=== PATIENT | male | born 1965 | race Hispanic/Latino ===

== ENCOUNTER 2021-06-18 13:20 | Inpatient (IN) | payer SELFPAY ==
[2021-06-18] MEDS ORDERED: BUPIVACAINE 0.5% PF 10 ML VIAL ONE (14:32)
[2021-06-18] MEDS ORDERED: LIDOCAINE 1% MPF 5 ML VIAL ONE (14:32)
--- NOTE | 2021-06-18 15:24 | RAD REPORT ---
EXAM DESCRIPTION: RAD - Hand Left 3 View - 06/18/2021 3:05 pm CLINICAL HISTORY: PAIN, Alondra bleeding injury to the second and third digits COMPARISON: None. FINDINGS: There is transverse fracture in the midportion of the third distal phalanx with bone loss in addition to the fracture. No significant distraction or angulation of the tuft. No foreign body id entifiable in the third digit. Comminuted fracture involves the head of the second middle phalanx and base of the second distal phal anx. There is ventral dislocation of the second distal phalanx. There is some associated traumatic majo ne loss through this fracture as well. No second digit foreign body. IMPRESSION: Posttraumatic bone loss in fracture changes to the third distal phalanx and the second D IP joint as detailed.
[2021-06-18 16:26] LABS: Absolute Lymphocytes (CBC) 2.8 K/uL (0.7-4.9); Basophils % 0.5 % (0-1.3); Lymphocytes % 43.9 % (15.3-44.8); MPV 8.1 fL (7.6-11.3); RBC Red Blood Cell Count 4.04 M/uL (4.33-5.43)
[2021-06-18] MEDS ORDERED: NA CHLORIDE 0.9% 1,000 ML ONE (16:33)
[2021-06-18] MEDS ORDERED: CEFAZOLIN/SWI 1gm 1 GM/10 ML SYR ONE (16:33)
[2021-06-18 16:34] LABS: Potassium 4.1 mmol/L (3.5-5.1)
[2021-06-18] MEDS ORDERED: ONDANSETRON 4 MG/2 ML VIAL ONE (16:46)
[2021-06-18] MEDS ORDERED: MORPHINE 4 MG/ML SYR ONE (16:46)
--- NOTE | 2021-06-18 16:46 | EDPHYS ---
Physician Documentation [facility] Name: Constantino Cole Age: 55 yrs Sex: Male : 1965 Arrival Date: 06/18/2021 Time: 13:22 Bed 16 Private MD: ED Physician Adonay Jack HPI: 06/18 16:37 This 55 yrs old Male presents to ER via Ambulatory with complaints of kb Laceration To Hand. 16:37 The patient has a laceration related to: cutting tree with saw occurred outdoors, and kb there are no complicating factors. The injury was accidental. The laceration(s) is(are) located on the dorsal aspect of distal phalanx of left middle finger and palmar aspect of distal phalanx of left index finger and dorsal aspect of distal phalanx of left index finger. Onset: The symptoms/episode began/occurred just prior to arrival. Associated signs and symptoms: The patient has no apparent associated signs or symptoms. The patient has not experienced similar symptoms in the past. The patient has not recently seen a physician. Patient was cutting tree with a saw when the saw cuts. Patient thought this was turned off as he tried to get it out of the tree. Once he got the cell free the blade started spinning again and cut patient's fingers.. Historical: - Allergies: 14:01 No Known Allergies; ss - Home Meds: 14:01 None [Active]; ss - PMHx: 14: None; ss - PSHx: 14:01 None; ss - Immunization history:: Adult Immunizations up to date. - Social history:: Smoking status: Patient denies any tobacco usage or history of. ROS: 16:33 Constitutional: Negative for fever, chills, and weight loss. kb 16:33 MS/extremity: Positive for injury or acute deformity, deformity, laceration, swelling, tenderness, of the left middle finger and left index finger. 16:33 Skin: Positive for laceration(s), of the left middle finger and left index finger. 16:33 All other systems are negative. Exam: 16:30 Constitutional: This is a well developed, well nourished patient who is awake, alert, kb and in no acute distress. Head/Face: Normocephalic, atraumatic. ENT: Moist Mucous membranes Cardiovascular: Regular rate and rhythm with a normal S1 and S2. No gallops, murmurs, or rubs. No pulse deficits. Respiratory: Respirations even and unlabored. No increased work of breathing, no retractions or nasal flaring. Abdomen/GI: Soft, non-tender. No distention Neuro: Awake and alert, GCS 15, oriented to person, place, time, and situation. Moves all extremities. Normal gait. Psych: Awake, alert, with orientation to person, place and time. Behavior, mood, and affect are within normal limits. 16:30 Skin: injury, laceration(s), the wound is approximately 3 cm(s), of the dorsal aspect of distal phalanx of left index finger, the second wound is approximately 1 cm(s), of the palmar aspect of distal phalanx of left index finger, the third wound is approximately 2 cm(s), of the dorsal aspect of distal phalanx of left middle finger, that can be described as contaminated, no foreign body, jagged, with mild bleeding. 16:31 Musculoskeletal/extremity: Extremities: grossly normal except: noted in the left index kb finger and left middle finger: deformity, laceration, swelling, tenderness, ROM: intact in all extremities, Circulation is intact in all extremities. Sensation intact. Vital Signs: 14:01 BP 185 / 94; Pulse 91; Resp 20; Temp 98.0(TE); Pulse Ox 97% ; Weight 76.2 kg; Height 5 ss ft. 4 in. (165 cm); Pain 4/10; 16:35 BP 153 / 81; Pulse 69; Resp 18; Pulse Ox 98% on R/A; tr6 14:01 Body Mass Index 27.99 (76.20 kg, 165 cm) ss MDM: 14:05 Patient medically screened. kb 14:55 Data reviewed: vital signs, nurses notes. Data interpreted: Pulse oximetry: on room air kb is 97 %. Interpretation: normal. Test interpretation: by ED physician or midlevel provider: plain radiologic studies, fracture of second and third distal phalanx, fracture of second middle phalanx. . 15:01 Physician consultation: Harley Camacho MD was called at 15:01, voicemail left. kb 15:52 Physician consultation: Harley Camacho MD was contacted at 15:20, regarding consult, kb patient's condition, and will see patient in inpatient room, tomorrow. 16:29 Counseling: I had a detailed discussion with the patient and/or guardian regarding: the kb historical points, exam findings, and any diagnostic results supporting the discharge/admit diagnosis, lab results, radiology results, the need for further work-up and treatment in the hospital. Physician consultation: TRINIDAD Lozada consulted for admission. In ED to evaluate pt now. 06/18 15:29 Order name: COVID-19 : Document "Date of Symptom Onset" if Symptomatic. ss 06/18 15:52 Order name: CBC with Diff; Complete Time: 16:29 kb 06/18 14:04 Order name: Hand Left 3 View XRAY; Complete Time: 15:53 kb 06/18 15:52 Order name: Basic Metabolic Panel; Complete Time: 16:38 kb 06/18 17:58 Order name: SARS-COV-2 RT PCR EDMS 06/18 14:04 Order name: Dressing - Wound; Complete Time: 14:13 kb 06/18 16:36 Order name: Diet Regular; Complete Time: 16:36 tr6 06/18 14:04 Order name: Gloves, Sterile; Complete Time: 14:13 kb 06/18 14:04 Order name: Setup Suture Tray; Complete Time: 14:13 kb 06/18 15:52 Order name: IV Start; Complete Time: 16:06 kb 06/18 15:52 Order name: Wound Care: apply betadine gauze ; Complete Time: 16:18 kb Administered Medications: 16:08 Not Given (Other Intervention Used): Bupivacaine (0.5 %) 1 vials 10 ml Infiltration oncetr6 16:08 Not Given (Other Intervention Used): Lidocaine (1 %) 1 vials 5 ml Infiltration once; to tr6 bedside 16:18 Drug: NS 0.9% 1000 ml Route: IV; Rate: 125 ml/hr; Site: right antecubital; tr6 16:18 Drug: Ancef (cefazolin) 1 grams Route: IVPB; Site: right antecubital; tr6 16:32 Drug: morphine 4 mg Route: IVP; Site: right antecubital; tr6 17:01 Follow up: Response: Pain is decreased tr6 16:32 Drug: Zofran (Ondansetron) 4 mg Route: IVP; Site: right antecubital; tr6 17:01 Follow up: Response: No adverse reaction tr6 Disposition: 06/19 07:49 Co-signature as Attending Physician, Adonay Jack MD I agree with the assessment and kdr plan of care. Disposition Summary: 06/18/21 16:45 Hospitalization Ordered Hospitalization Status: Observation kb Provider: Papo Barrett Location: Telemetry/MedSurg (observation) kb Condition: Stable kb Problem: new kb Symptoms: are unchanged kb Bed/Room Type: Standard Room Assignment: 224(06/18/21 19:12) tl1 Diagnosis - Displaced fracture of distal phalanx of left second digit kb - Displaced fracture of distal phalanx of left third digit kb - Displaced fracture of middle phalanx of left second digit kb - laceration without foreign body of left second and third digits kb Forms: - Medication Reconciliation Form kb - SBAR form kb Signatures: Dispatcher [employer] EDMS Jaz Peralta, SHIPPING ROOM HELPER-C SHIPPING ROOM HELPER-Ckb Adonay Jack MD MD [facility] Melissa Wolfe RN RN Yun Eisenberg, RN RN tl1 Qiana Goldman, KRIS RN tr6 Corrections: (The following items were deleted from the chart) 06/18 16:07 14:04 Sutures, Prolene ordered. kb tr6 16:18 15:52 CORONAVIRUS+MR.LAB.BRZ ordered. EDMS EDMS 19:12 16:45 kb tl1
--- NOTE | 2021-06-18 16:46 | ER ---
Nurse's Notes [facility] Name: Constantino Cole Age: 55 yrs Sex: Male : 1965 Arrival Date: 06/18/2021 Time: 13:22 Bed 16 Private MD: Diagnosis: Displaced fracture of distal phalanx of left second digit;Displaced fracture of distal phalanx of left third digit;Displaced fracture of middle phalanx of left second digit;laceration without foreign body of left second and third digits Presentation: 06/18 14:00 Chief complaint: Patient states: laceration to top of L fingers sustained by saw 30 ss minutes ago while cutting a tree. No active bleeding noted at this time.. Coronavirus screen: Client denies travel out of the [place] in the last 14 days. Ebola Screen: Patient denies exposure to infectious person. Patient denies travel to an Ebola-affected area in the 21 days before illness onset. Complicating Factors: There are no complicating factors for this patient. Initial Sepsis Screen: Does the patient meet any 2 criteria? No. Patient's initial sepsis screen is negative. Does the patient have a suspected source of infection? No. Patient's initial sepsis screen is negative. Risk Assessment: Do you want to hurt yourself or someone else? Patient reports no desire to harm self or others. Onset of symptoms was June 18, 2021. 14:00 Method Of Arrival: Ambulatory ss 14:00 Acuity: SANDRA 3 ss Historical: - Allergies: 14:01 No Known Allergies; ss - Home Meds: 14:01 None [Active]; ss - PMHx: 14:01 None; ss - PSHx: 14:01 None; ss - Immunization history:: Adult Immunizations up to date. - Social history:: Smoking status: Patient denies any tobacco usage or history of. Screenin:18 Abuse screen: Denies threats or abuse. Denies injuries from another. Nutritional tr6 screening: No deficits noted. Tuberculosis screening: No symptoms or risk factors identified. Fall Risk None identified. Assessment: 14:16 General: Appears in no apparent distress. comfortable, Behavior is calm, cooperative, tr6 appropriate for age. Pain: Complains of pain in left hand. Neuro: No deficits noted. Cardiovascular: No deficits noted. Respiratory: No deficits noted. GI: No deficits noted. : No deficits noted. EENT: No deficits noted. Derm: Wound noted left hand, first and second finger. Musculoskeletal: limited movement in first and second finger due to pain from laceration. Injury Description: Laceration is jagged, bleeding moderately. 15:00 Reassessment: GIULIANA Peralta informed pt of results from xray. pt resting comfortably in tr6 bed. denies need for assistance at this time. 16:35 Reassessment: Patient and/or family updated on plan of care and expected duration. Pain tr6 level reassessed. Patient is alert, oriented x 3, equal unlabored respirations, skin warm/dry/pink. Vital Signs: 14:01 BP 185 / 94; Pulse 91; Resp 20; Temp 98.0(TE); Pulse Ox 97% ; Weight 76.2 kg; Height 5 ss ft. 4 in. (165 cm); Pain 4/10; 16:35 BP 153 / 81; Pulse 69; Resp 18; Pulse Ox 98% on R/A; tr6 14:01 Body Mass Index 27.99 (76.20 kg, 165 cm) ED Course: 13:22 Patient arrived in ED. as 13:50 Jaz Peralta, [facility] kb 13:50 Adonay Jack MD is Attending Physician. kb 14:01 Triage completed. ss 14:01 Arm band placed on right wrist. ss 14:03 Qiana Goldman, KRIS is Primary Nurse. tr6 14:18 Patient has correct armband on for positive identification. Bed in low position. Call tr6 light in reach. Side rails up X 1. Door closed. Noise minimized. Visitors limited. Lights dimmed. Moved to private room. 14:18 No provider procedures requiring assistance completed. Wound care: was cleaned with. tr6 15:05 Hand Left 3 View XRAY In Process Unspecified. EDMS 16:06 Inserted saline lock: 18 gauge in right antecubital area, using aseptic technique. tr6 Blood collected. 16:42 Papo Barrett is Hospitalizing Provider. kb Administered Medications: 16:08 Not Given (Other Intervention Used): Bupivacaine (0.5 %) 1 vials 10 ml Infiltration oncetr6 16:08 Not Given (Other Intervention Used): Lidocaine (1 %) 1 vials 5 ml Infiltration once; to tr6 bedside 16:18 Drug: NS 0.9% 1000 ml Route: IV; Rate: 125 ml/hr; Site: right antecubital; tr6 16:18 Drug: Ancef (cefazolin) 1 grams Route: IVPB; Site: right antecubital; tr6 16:32 Drug: morphine 4 mg Route: IVP; Site: right antecubital; tr6 17:01 Follow up: Response: Pain is decreased tr6 16:32 Drug: Zofran (Ondansetron) 4 mg Route: IVP; Site: right antecubital; tr6 17:01 Follow up: Response: No adverse reaction tr6 Outcome: 16:45 Decision to Hospitalize by Provider. kb 19:31 Patient left the ED. ms4 Signatures: Dispatcher [employer] EDJaz Briones, RN ELIGIBILITY-C GIULIANA-Tabitha Johnson Shelby, RN RN Qiana Goldman RN RN tr6 Sneha Vegas RN RN ms4
--- NOTE | 2021-06-18 17:44 | P.HP ---
Certification for Inpatient Patient admitted to: Observation With expected LOS: <2 Midnights Patient will require the following post-hospital care: None Practitioner: I am a practitioner with admitting privileges, knowledge of patient current condition, hospital course, and medical plan of care. Services: Services provided to patient in accordance with Admission requirements found in Title 42 Section 412.3 of the Code of Federal Regulations Patient History Date of Service: 06/18/21 Reason for admission: fracture of 2nd and 3rd digit History of Present Illness: This is a 55 y/o M who presents today after an accidental laceration to his hand. He cut his hand with a saw while he was working. He thought the saw was off and then sliced his second and third digit. States this is the first accident he has ever had. - Past Medical/Surgical History Psychosocial/ Personal History: lives with his - Social History Smoking Status: Never smoker Alcohol use: Yes CD- Drugs: No Caffeine use: Yes Review of Systems 10-point ROS is otherwise unremarkable Physical Examination - Physical Exam General: Alert, In no apparent distress, Oriented x3, Cooperative, Other (splattered blood on clothes ) HEENT: Atraumatic, Normocephalic, Mucous membr. moist/pink Neck: Supple Respiratory: Clear to auscultation bilaterally, Normal air movement Cardiovascular: Normal pulses, Regular rate/rhythm Capillary refill: <2 Seconds Gastrointestinal: Normal bowel sounds, Soft and benign, No tenderness Musculoskeletal: Other (clean bandage wrapped around L hand) Integumentary: No rashes Neurological: Normal speech, Normal tone, Normal affect Lymphatics: No axilla or inguinal lymphadenopathy - Studies Laboratory Data (last 24 hrs) 06/18/21 16:02: Sodium 142, Potassium 4.1, BUN 20 H, Creatinine 1.23, Glucose 97 06/18/21 16:02: WBC 6.50, Hgb 13.1 L, Hct 38.0 L, Plt Count 240 Assessment and Plan - Problems (Diagnosis) (1) Fracture of distal phalanx of finger of left hand Current Visit: Yes Status: Acute (2) Fracture of middle phalanx of finger of left hand Current Visit: Yes Status: Acute - Plan plan: -OR tomorrow morning with Dr. Camacho -NPO after midnight -continue IV antibiotics VTE prophylaxis: SCDs code: full Discharge Plan: Home Plan to discharge in: 24 Hours - Advance Directives Does patient have a Living Will: No Does patient have a Durable POA for Healthcare: No - Code Status/Comfort Care Code Status Assessed: Yes (f) Time Spent Managing Pts Care (In Minutes): 55
[2021-06-18] MEDS ORDERED: CEFAZOLIN/SWI 1gm 1 GM/10 ML SYR IVP SCH (19:00)
[2021-06-18] MEDS ORDERED: MORPHINE 4 MG/ML SYR IV PRN (22:52)
[2021-06-18 23:19] VITALS: BMI 28.8
[2021-06-19] MEDS ORDERED: CEFAZOLIN/SWI 1gm 1 GM/10 ML SYR ONE ×2 (00:41→08:22)
[2021-06-19] MEDS ORDERED: CEFAZOLIN/SWI 1gm 1 GM/10 ML SYR IVP SCH ×2 (01:00)
[2021-06-19] MEDS ORDERED: CEFAZOLIN/NS 1gm 1 GM/50 ML BAG IVPB SCH ×2 (01:00)
[2021-06-19 05:30] LABS: Absolute Lymphocytes (CBC) 2.5 K/uL (0.7-4.9); Basophils % 0.6 % (0-1.3); Hematocrit 37.1 % (39.6-49.0); Lymphocytes % 45.4 % (15.3-44.8); MPV 7.8 fL (7.6-11.3); RBC Red Blood Cell Count 3.93 M/uL (4.33-5.43)
[2021-06-19 05:47] LABS: Albumin 3.2 g/dL (3.4-5.0); Bilirubin Total 0.4 mg/dL (0.2-1.0); Potassium 4.1 mmol/L (3.5-5.1); Protein, Total 6.6 g/dL (6.4-8.2)
[2021-06-19 06:47] LABS: Blood Morphology Comment NOT SEEN (NOT SEEN); Platelet Estimate ADEQ
[2021-06-19] MEDS ORDERED: NS 0.9% VIAL 10 ML ONE (08:18)
[2021-06-19] MEDS ORDERED: dexAMETHasone 10 MG/ML VIAL ONE (08:18)
[2021-06-19] MEDS ORDERED: LIDOCAINE 1% MPF 5 ML VIAL ONE ×2 (08:18→08:54)
[2021-06-19] MEDS ORDERED: ROPLVACAINE HCL 40 ML ONE (08:19)
[2021-06-19] MEDS ORDERED: Ringers Lactate 1,000 ML IV ONE (08:19)
[2021-06-19] MEDS ORDERED: MIDAZOLAM HCL 2 MG/2 ML INJ ONE (08:19)
[2021-06-19] MEDS ORDERED: FENTANYL CITR 100 MCG/2 ML ONE (08:19)
[2021-06-19] MEDS ORDERED: KETOROLAC 30 MG/ML INJ ONE (08:53)
[2021-06-19] MEDS ORDERED: propofoL 200 MG/20 ML VIAL IV ONE ×2 (08:53→10:04)
[2021-06-19] MEDS ORDERED: ONDANSETRON 4 MG/2 ML VIAL ONE (08:54)
[2021-06-19] MEDS ORDERED: dexAMETHasone 4 MG/ML VIAL ONE (08:54)
--- NOTE | 2021-06-19 11:14 | RAD REPORT ---
EXAM DESCRIPTION: RAD - Fluoroscopy <1 Hour - 06/19/2021 10:49 am CLINICAL HISTORY: PINNING LEFT FINGERS COMPARISON: No comparisons FINDINGS: Fluoroscopy time: 0.2 minutes.
--- NOTE | 2021-06-19 11:31 | P.DS ---
Admission Date: 06/18/21 Discharge Date: 06/19/21 Disposition: ROUTINE DISCHARGE Discharge Condition: FAIR Reason for Admission: fracture of 2nd and 3rd digit - Problems (1) Fracture of distal phalanx of finger of left hand Current Visit: Yes Status: Acute (2) Fracture of middle phalanx of finger of left hand Current Visit: Yes Status: Acute Brief History of Present Illness: 55 y/o M who presents with an accidental laceration to his hand. He cut his hand with a saw while he was working. He thought the saw was off and then sliced his second and third digit. X-ray of the left hand showed comminuted fractures of the 2nd and 3rd digits. Hand surgery Dr. Camacho was contacted and patient admitted for further management. Hospital Course: Patient admitted to the medical floor, seen by Dr. Camacho we took him to OR and repaired the fractures. Patient deemed stable for discharge per Dr. Camacho. Vital Signs/Physical Exam: Temp Pulse Resp BP Pulse Ox 97.1 F 60 16 145/84 H 98 06/19/21 04:00 06/19/21 04:00 06/19/21 04:00 06/19/21 04:00 06/19/21 04:00 Laboratory Data at Discharge: WBC 5.50 K/uL (4.3-10.9) D 06/19/21 05:10 Hgb 12.7 g/dL (13.6-17.9) L 06/19/21 05:10 Hct 37.1 % (39.6-49.0) L 06/19/21 05:10 Plt Count 211 K/uL (152-406) 06/19/21 05:10 Sodium 142 mmol/L (136-145) 06/19/21 05:10 Potassium 4.1 mmol/L (3.5-5.1) 06/19/21 05:10 BUN 18 mg/dL (7-18) 06/19/21 05:10 Creatinine 1.43 mg/dL (0.55-1.3) H 06/19/21 05:10 Glucose 96 mg/dL (74-106) 06/19/21 05:10 Total Bilirubin 0.4 mg/dL (0.2-1.0) 06/19/21 05:10 AST 26 U/L (15-37) 06/19/21 05:10 ALT 60 U/L (12-78) 06/19/21 05:10 Alkaline Phosphatase 62 U/L (45-117) 06/19/21 05:10 Diet: Regular Activity: Ad karen Followup: NONE,NONE [Primary Care Provider] - Time spent managing pt's care (in minutes): 25
--- NOTE | 2021-06-19 12:28 | OP ---
Surgeon: Harley Camacho MD Preoperative Diagnosis: Open fracture of the left index finger distal phalanx and left middle finger distal phalanx. Postoperative Diagnosis: Open fracture of the left index finger distal phalanx and left middle finge r distal phalanx. Procedure Performed: Debridement of skin and subcutaneous of the left index finger DIP ortega nt. Nail bed repair of the index and middle finger, simple closure of 8 cm wound and splint of index and middle. Anesthesia: General block. Operative Note: After satisfactory anesthetic was induced, the left arm was prepped with Betadine sc rub, Betadine paint, dry sterile drapes were applied in usual manner. Arm was elevated, exsanguinate d with an Esmarch, tourniquet inflated to 250 mmHg. Hand was placed on a Roto Lock table. A periost eal elevator was used to remove the nail plates from both fingers and then the wounds were jet lavage d and irrigated after the skin was debrided. The patient's fracture of the distal phalanx had tissue missing, could not be repaired, so we underwent a fusion of the DIP joint. This was done with two 0 .035 K-wires. C-arm revealed adequate reduction of the joint. Then the wounds were closed with a ru nning 5-0 PDS suture. Skin closed with interrupted 4-0 Prolene simple sutures, vertical mattress and horizontal mattress was done on both fingers. Tourniquet released. Dressing consisted of Xeroform, 2-inch Lilliam, and a splint holding the DIP in extension of both fingers. The patient tolerated the procedure well and returned to recovery. KARINA/MODL Voice ID: [id number] Report ID: [id number]
[2021-06-19 14:13] VITALS: O2SAT 99
[2021-06-19 14:15] VITALS: BP 160/77; TEMP 97.3
== END 2021-06-19 12:20 | disposition home or self-care (01) | DRG 514 ==
LOC: ER 13:20 → ERHOLD 17:06 → 2ND 19:26 → OBSVTOIN 20:45 → 3RD-ICU 06-19 10:31
PROVIDERS: ADMIT Internal Medicine; ATTEND Internal Medicine
PROC: 0PSV04Z Reposition Left Finger Phalanx with Internal Fixation Device, Open Approach (ICD-10-PCS; 2021-06-19)
PROC: 0HTQXZZ Resection of Finger Nail, External Approach (ICD-10-PCS; 2021-06-19)
PROC: 0HTQXZZ Resection of Finger Nail, External Approach (ICD-10-PCS; 2021-06-19)
PROC: 0PSV04Z Reposition Left Finger Phalanx with Internal Fixation Device, Open Approach (ICD-10-PCS; principal; 2021-06-19 14:15)
DX: S62.631B Displaced fracture of distal phalanx of left index finger, initial encounter for open fracture (principal); S62.633B Displaced fracture of distal phalanx of left middle finger, initial encounter for open fracture; W27.0XXA Contact with workbench tool, initial encounter; Y92.69 Other specified industrial and construction area as the place of occurrence of the external cause; Z20.822 Contact with and (suspected) exposure to COVID-19
CPT/HCPCS: 36415; 76000; 80048; 80053; 85025; 96374; 96375; 99284; G0378; J0690; J1100; J2250; J2405; J2704; J2795; J3010; J7030; J7120; U0003